=== PATIENT | female | born 1965 | race Caucasian/White ===

== ENCOUNTER → 2016-06-06 | Outpatient (CLI) | payer MEDICARE, MEDICAID ==
[~2016-06-06] MED LIST: LAMO25TA75 PO; LEVO88TA2 PO; PANT20TA2 PO; QUET300T3 PO; SUCR1TAB36 PO; VENL150C PO
== END ==
LOC: PREOP 05:56
PROVIDERS: ATTEND Surgery
DX: Z01.818 Encounter for other preprocedural examination (principal); Z12.11 Encounter for screening for malignant neoplasm of colon; K21.9 Gastro-esophageal reflux disease without esophagitis

== ENCOUNTER 2016-06-11 08:32 | Day surgery (SDC) | payer MEDICARE, MEDICAID ==
[~2016-06-11] VITALS: Ht 167.6 cm; Wt 74.8 kg
[2016-06-11] MEDS ORDERED: NS IV 1000 ML 1,000 ML ONE (08:48)
--- NOTE | 2016-06-11 08:52 | Progress Note-Pre Operative ---
Pre-Operative Progress Note H&P Reviewed The H&P was reviewed, patient examined and no changes noted. Date H&P Reviewed: Jun 11, 2016 Time H&P Reviewed: 08:51 Pre-Operative Diagnosis: gerd, change in bowel habits, anal fissure TERRANCE VEGA DO Jun 11, 2016 8:52 am
[2016-06-11] MEDS ORDERED: MIDAZOLAM 2 MG/2 ML (VERSED) VIAL ONE (09:01)
[2016-06-11] MEDS ORDERED: proPOfol 200 MG/20 ML (DIPRIVAN) VIAL IV ONE ×2 (09:01→09:40)
[2016-06-11] MEDS ORDERED: NS IV 1000 ML 1,000 ML IV STA (09:06)
[2016-06-11] MEDS ORDERED: FLUMAZENIL (ROMAZICON) 0.1 MG/ML 5 ML VIAL INJ PRN (09:15)
[2016-06-11] MEDS ORDERED: HURRICAINE EXT TUBE (BENZOCAINE) XX PRN (09:15)
[2016-06-11] MEDS ORDERED: LIDOCAINE JELLY 2% (XYLOCAINE) 5 ML TUBE MM PRN (09:15)
[2016-06-11] MEDS ORDERED: NALOXONE 0.4 MG/ML 1 ML (NARCAN) VIAL IVP PRN (09:15)
[2016-06-11] MEDS ORDERED: fentaNYL INJECTION 100 MCG/2 ML AMP IVP PRN (09:15)
[2016-06-11] MEDS ORDERED: MIDAZOLAM 2 MG/2 ML (VERSED) VIAL IVP PRN (09:15)
[2016-06-11 09:16] VITALS: BP 114/74
[2016-06-11] MEDS ORDERED: SUCR1TAB36 PO ×2 (09:24→09:57)
[2016-06-11] MEDS ORDERED: LEVO88TA2 PO (09:24)
[2016-06-11] MEDS ORDERED: PANT20TA2 PO ×2 (09:24→09:57)
[2016-06-11] MEDS ORDERED: VENL150C PO (09:24)
[2016-06-11] MEDS ORDERED: QUET300T3 PO (09:24)
[2016-06-11] MEDS ORDERED: LAMO25TA75 PO (09:24)
[2016-06-11] MEDS ORDERED: HURRICAINE EXT TUBE (BENZOCAINE) ONE (09:41)
--- NOTE | 2016-06-11 09:57 | Progress Note-Post Operative ---
Post-Operative Progess Note Pre-Operative Diagnosis gerd, change in bowel habits, anal fissure Post-Operative Diagnosis slight gastritis, hiatal hernia, anal fissure Post-Op Procedure Note Date of Procedure: Jun 11, 2016 Name of Procedure: egd c biopsies, colonoscopy Procedure Note/Findings see note Anesthesia Type per piano builder Estimated blood loss (mL): none Specimen(s) collected antrum, ge junction TERRANCE VEGA DO Jun 11, 2016 9:57 am
--- NOTE | 2016-06-11 10:06 | Discharge Inst-Simple/Standard ---
Discharge Inst-Standard Discharge Medications New, Converted or Re-Newed RX: RX on Chart Patient Instructions/Follow Up Plan of Care/Instructions/FU: Follow up with Dr. Mistry in 2 weeks Take medication as directed. Repeat colonoscopy in 10 years or sooner if any changes to current condition. If any family history of colon cancer will need colonoscopy in 5 years Increase water intake. Take stool softners and also high fiber diet Diltiazem cream, apply to anal area 3x a day and after each bowel movement. Activity as Tolerated: Yes Discharge Diet: No Restrictions EVERARDO MCGOVERN APRN Jun 11, 2016 10:06
[2016-06-11 10:10] VITALS: BP 94/52
[2016-06-11] MEDS ORDERED: ONDANSETRON 4 MG/2 ML (SDV) Z0FRAN ONE (10:31)
[2016-06-11] MEDS ORDERED: ONDANSETRON 4 MG/2 ML (SDV) Z0FRAN IVP ONE (10:35)
[2016-06-11 10:40] VITALS: BP 96/66
[2016-06-11 11:15] VITALS: BP 96/66
--- NOTE | 2016-06-12 10:24 | PROCEDURE REPORT ---
PROCEDURE PHYSICIAN: TERRANCE VEGA DATE OF PROCEDURE: 06/11/2016 PREOPERATIVE DIAGNOSIS: 1. GERD. 2. Change in bowel habits. 3. Anal fissure. POSTOPERATIVE DIAGNOSES: 1. Slight gastritis. 2. Hiatal hernia. 3. Anal fissure. PROCEDURE: 1. EGD with biopsies. 2. Colonoscopy. SURGEON: Fede. ANESTHESIA: Per CHIEF ADMINISTRATIVE OFFICER. ESTIMATED BLOOD LOSS: None. COMPLICATIONS: None. INDICATIONS: The patient is a 51-year-old female who has had reflux, change in bowel habits and noted to have anal fissure. She understands risks and benefits of the procedure and wishes to proceed with the procedures. Consent was signed on the chart. PROCEDURE: The patient was taken endoscopy suite, placed left lateral recumbent position. Timeout was performed. The scope was inserted in the mouth, down the esophagus, stomach and into the duodenum without difficulties. There were no polyps, masses, or ulcerations in the duodenum. The scope was slowly retracted back the stomach which had some erythematous changes in the distal portion of the stomach. A biopsy of the antrum was obtained. The scope was retroflexed noting a hiatal hernia. There were no polyps, masses, ulcerations. The scope was slowly retracted back to its normal position and slowly withdrawn back into the distal esophagus. Biopsies at the GE junction were obtained. The scope was then slowly retracted noting no other pathology. The patient then had digital rectal exam performed noting posterior anal fissures still present. The scope was inserted in the rectum and advanced all way cecum with minimal difficulty. Prep was adequate with irrigation and suction. There were no polyps, masses or ulceration in the cecum. The terminal ileum was partially intubated. The scope was slowly retracted. There were no polyps, masses ulcers noted in the cecum, ascending, transverse, descending and sigmoid colon. Once in the rectum, the scope was also retroflexed noting no other pathology. The scope was returned to its normal position and slowly withdrawn until completely removed. The patient tolerated the procedure well without any complications and taken to recovery room in stable condition. RECOMMENDATIONS: The patient will be placed on Protonix and Carafate. We will also do diltiazem cream for the anal fissure. She also will need to be on a stool softener, and increased water intake and high-fiber diet. We will have her follow-up in 3 weeks to see how she is doing at that time. If she has any change in condition, she will need to be reevaluated at that time. She will need a repeat colonoscopy in 10 years unless family history of colon cancer which would then be 5 years. If she has any problems prior to that, she should be reevaluated at that time. Job ID: [id number] Dictated Date: 06/11/2016 10:01:08 [employer] Delivery Driver Date: 06/12/2016 10:15:37 / perfecto
== END 2016-06-11 11:15 | disposition home or self-care (01) ==
LOC: ENDO 08:32
PROVIDERS: ATTEND Surgery
DX: K60.2 Anal fissure, unspecified (principal); K21.9 Gastro-esophageal reflux disease without esophagitis; K44.9 Diaphragmatic hernia without obstruction or gangrene; K29.70 Gastritis, unspecified, without bleeding; K59.00 Constipation, unspecified; Z80.0 Family history of malignant neoplasm of digestive organs
CPT/HCPCS: 84703; 88305